=== PATIENT | male | born 2000 | race African-American/Black ===

== ENCOUNTER 2022-08-15 14:47 | Emergency (ER) | payer MEDICAID ==
[~2022-08-15] VITALS: Ht 177.8 cm; Wt 60.1 kg
[~2022-08-15 14:47] MED LIST: ACET-6 PO; TOBR0.3S OP
[2022-08-15 15:37] VITALS: BP 135/76
[2022-08-15] MEDS ORDERED: IBUP600T27 PO (17:45)
[2022-08-15] MEDS ORDERED: CYCL-837 PO (17:45)
== END 2022-08-15 17:59 | disposition home or self-care (01) ==
LOC: ER 14:47
DX: S02.2XXA Fracture of nasal bones, initial encounter for closed fracture (principal); S00.33XA Contusion of nose, initial encounter; S06.0X0A Concussion without loss of consciousness, initial encounter; X58.XXXA Exposure to other specified factors, initial encounter; Y93.89 Activity, other specified; Y92.89 Other specified places as the place of occurrence of the external cause; Y99.8 Other external cause status
CPT/HCPCS: 70450; 70486; 72125